=== PATIENT | female | born 1955 | race African-American/Black ===

== ENCOUNTER 2016-10-01 18:20 | Emergency (ER) | payer MEDICAID, OTHER ==
[~2016-10-01] VITALS: Ht 172.7 cm; Wt 69.0 kg
[2016-10-01 18:37] VITALS: BP 154/84
== END 2016-10-01 21:00 | disposition left against medical advice (07) ==
LOC: ER 18:20
DX: I10 Essential (primary) hypertension (principal); F17.200 Nicotine dependence, unspecified, uncomplicated; F12.10 Cannabis abuse, uncomplicated; Z98.890 Other specified postprocedural states; Z90.710 Acquired absence of both cervix and uterus

== ENCOUNTER 2019-08-15 03:39 | Emergency (ER) | payer MEDICAID, OTHER ==
[~2019-08-15] VITALS: Ht 165.1 cm; Wt 57.0 kg
[2019-08-15] MEDS ORDERED: PREDNISONE 20MG TABLET PO ONE (04:15)
[2019-08-15 05:37] VITALS: BP 140/70
== END 2019-08-15 05:37 | disposition home or self-care (01) ==
LOC: ER 03:39
DX: J44.1 Chronic obstructive pulmonary disease with (acute) exacerbation (principal); M79.7 Fibromyalgia; I10 Essential (primary) hypertension; N15.9 Renal tubulo-interstitial disease, unspecified; F12.10 Cannabis abuse, uncomplicated; F17.200 Nicotine dependence, unspecified, uncomplicated; Z90.710 Acquired absence of both cervix and uterus; Z98.890 Other specified postprocedural states
CPT/HCPCS: 71045; 99283; J7512

== ENCOUNTER 2019-10-03 00:34 | Inpatient (IN) | payer MEDICAID ==
[~2019-10-03] VITALS: Ht 172.7 cm; Wt 61.9 kg
[2019-10-03] MEDS ORDERED: IPRATROPIUM BROMIDE (0.02%) 0.5MG/2.5ML NEB HHN STA (00:52)
[2019-10-03] MEDS ORDERED: ALBUTEROL (0.083%) 2.5MG/3ML NEB HHN STA (00:52)
[2019-10-03 01:22] LABS: BASOPHILS % 0.8 % (0.0-2.0); EOSINOPHILS % 1.8 % (0.0-5.0); HEMATOCRIT. 40.3 % (36.0-48.0); HEMOGLOBIN. 13.2 g/dL (12.0-16.0); LYMPHOCYTES % 22.5 % (20.0-50.0); MEAN CORPUSCULAR HEMOGLOBIN 30.9 pg (28.0-32.0); MEAN CORPUSCULAR VOLUME 94.4 fL (81.0-99.0); MEAN PLATELET VOLUME 8.9 fl (7.4-10.4); MONOCYTES % 4.8 % (2.0-8.0); NEUTROPHILS % 70.1 % (40.0-76.0); PLATELET 210 x1000/uL (130-400); RED BLOOD CELL COUNT 4.27 mill/uL (4.2-5.4); RED CELL DISTRIBUTION WIDTH 13.7 % (11.6-14.6)
[2019-10-03 01:26] LABS: CHLORIDE 107 mEq/L (98-107)
[2019-10-03 01:33] LABS: INR 1.1; PARTIAL THROMBOPLASTIN TIME 26.2 sec (23.4-31.0); PROTHROMBIN TIME 12.2 sec (9.6-11.0)
[2019-10-03] MEDS ORDERED: FUROSEMIDE 20MG/2ML VIAL IVP ONE (04:30)
[2019-10-03] MEDS: MORPHINE SULFATE 2 MG/ML CPJ (NOT FOR IM USE) IV PRN ×2 (10:32→16:50)
[2019-10-03] MEDS ORDERED: ONDANSETRON HCL 4MG/2ML INJ IV PRN (17:00)
[2019-10-03] MEDS ORDERED: ACETAMINOPHEN 325MG TABLET PO PRN (17:00)
[2019-10-03] MEDS ORDERED: LORAZEPAM 0.5MG TABLET PO PRN (17:00)
[2019-10-03] MEDS ORDERED: CLONIDINE 0.1MG TABLET PO PRN (17:00)
[2019-10-03] MEDS ORDERED: IPRATROPIUM/ALBUTEROL 0.5-3(2.5)MG/3ML NEB HHN PRN (17:00)
[2019-10-03] MEDS ORDERED: NICOTINE 14MG PATCH TD NR (18:30)
[2019-10-03] MEDS: HYDROCODONE/ACETAMINOPHEN 5/325MG TABLET PO PRN (19:01)
[2019-10-03] MEDS: FUROSEMIDE 40MG/4ML VIAL IVP SCH (19:01)
[2019-10-03] MEDS ORDERED: CYCLOBENZAPRINE 10MG TABLET PO PRN (19:45)
[2019-10-03] MEDS: ATORVASTATIN CALCIUM 40MG TABLET PO SCH (21:39)
[2019-10-03 23:45] VITALS: BP 105/72
[2019-10-04] VITALS (8 sets, daily range): BP systolic 105–136; BP diastolic 69–89
[2019-10-04] MEDS ORDERED: WARFARIN SODIUM 5MG TABLET PO SCH ×2 (01:00→21:00)
[2019-10-04] MEDS ORDERED: DOCU-266 MT (01:52)
[2019-10-04] MEDS ORDERED: ASPI-1158 PO (01:52)
[2019-10-04] MEDS ORDERED: TOPUD MT (01:52)
[2019-10-04] MEDS ORDERED: CYCL10TA7 PO (01:52)
[2019-10-04] MEDS ORDERED: WARF1TAB85 PO (01:52)
[2019-10-04] MEDS ORDERED: PARO-41 PO (01:52)
[2019-10-04] MEDS ORDERED: IPRA4AER INH (01:52)
[2019-10-04] MEDS ORDERED: CHOL200077 PO (01:52)
[2019-10-04] MEDS ORDERED: AMIT25TA9 PO (01:52)
[2019-10-04] MEDS ORDERED: WARF3TAB58 MT (01:52)
[2019-10-04] MEDS: MORPHINE SULFATE 2 MG/ML CPJ (NOT FOR IM USE) IV PRN ×3 (02:27→23:00)
[2019-10-04] MEDS: HYDROCODONE/ACETAMINOPHEN 5/325MG TABLET PO PRN ×2 (07:03→15:28)
[2019-10-04 07:25] LABS: BASOPHILS % 0.9 % (0.0-2.0); EOSINOPHILS % 5.4 % (0.0-5.0); HEMOGLOBIN. 12.4 g/dL (12.0-16.0); LYMPHOCYTES % 44.8 % (20.0-50.0); MEAN CORPUSCULAR HEMOGLOBIN 30.4 pg (28.0-32.0); MEAN CORPUSCULAR VOLUME 92.8 fL (81.0-99.0); MEAN PLATELET VOLUME 9.3 fl (7.4-10.4); MONOCYTES % 6.9 % (2.0-8.0); PLATELET 224 x1000/uL (130-400); RED CELL DISTRIBUTION WIDTH 13.4 % (11.6-14.6)
[2019-10-04 07:28] LABS: INR 1.2; PROTHROMBIN TIME 12.5 sec (9.6-11.0)
[2019-10-04 07:46] LABS: CHLORIDE 104 mEq/L (98-107)
[2019-10-04] MEDS: NICOTINE 14MG PATCH TD SCH (09:26)
[2019-10-04] MEDS: FUROSEMIDE 40MG/4ML VIAL IVP SCH (09:26)
[2019-10-04] MEDS ORDERED: CARVEDILOL 3.125 MG TABLET PO NR (12:30)
[2019-10-04] MEDS: ENOXAPARIN 60MG/0.6ML SYR SUBCUT SCH ×2 (13:23→21:19)
[2019-10-04] MEDS: ATORVASTATIN CALCIUM 40MG TABLET PO SCH (21:19)
[2019-10-04] MEDS: CARVEDILOL 3.125 MG TABLET PO SCH (21:20)
[2019-10-05 00:01] VITALS: BP 119/84
[2019-10-05 04:00] VITALS: BP 109/81
[2019-10-05] MEDS: MORPHINE SULFATE 2 MG/ML CPJ (NOT FOR IM USE) IV PRN ×3 (05:15→21:16)
[2019-10-05 07:28] LABS: BASOPHILS % 0.9 % (0.0-2.0); EOSINOPHILS % 6.8 % (0.0-5.0); HEMATOCRIT. 40.9 % (36.0-48.0); HEMOGLOBIN. 13.2 g/dL (12.0-16.0); LYMPHOCYTES % 50.7 % (20.0-50.0); MEAN CORPUSCULAR HEMOGLOBIN 30.2 pg (28.0-32.0); MEAN CORPUSCULAR VOLUME 93.3 fL (81.0-99.0); MEAN PLATELET VOLUME 9.2 fl (7.4-10.4); NEUTROPHILS % 33.6 % (40.0-76.0); PLATELET 217 x1000/uL (130-400); RED BLOOD CELL COUNT 4.38 mill/uL (4.2-5.4); RED CELL DISTRIBUTION WIDTH 13.2 % (11.6-14.6)
[2019-10-05 07:34] LABS: INR 1.3; PROTHROMBIN TIME 13.9 sec (9.6-11.0)
[2019-10-05 07:51] LABS: CHLORIDE 105 mEq/L (98-107)
[2019-10-05 08:00] VITALS: BP 101/69
[2019-10-05 08:04] LABS: HEPATITIS B SURFACE ANTIGEN NEGATIVE
[2019-10-05] MEDS: NICOTINE 14MG PATCH TD SCH (08:23)
[2019-10-05] MEDS: FUROSEMIDE 40MG/4ML VIAL IVP SCH (08:23)
[2019-10-05] MEDS: ENOXAPARIN 60MG/0.6ML SYR SUBCUT SCH ×2 (08:23→21:16)
[2019-10-05] MEDS: CARVEDILOL 3.125 MG TABLET PO SCH ×2 (08:24→17:27)
[2019-10-05 08:33] LABS: HEPATITIS A AB IGM NEGATIVE (NEGATIVE)
[2019-10-05 08:41] LABS: INR 1.2; PROTHROMBIN TIME 13.4 sec (9.6-11.0)
[2019-10-05 12:00] VITALS: BP 101/62
[2019-10-05] MEDS: DOCUSATE SODIUM 100MG CAPSULE PO PRN (13:22)
[2019-10-05 16:00] VITALS: BP 112/76
[2019-10-05] MEDS ORDERED: WARFARIN SODIUM 5MG TABLET PO NR (18:00)
[2019-10-05 20:00] VITALS: BP 108/70
[2019-10-05] MEDS: ATORVASTATIN CALCIUM 40MG TABLET PO SCH (21:15)
[2019-10-06] VITALS (7 sets, daily range): BP systolic 84–133; BP diastolic 54–77
[2019-10-06 01:15] LABS: *AMPHETAMINES SCREEN URINE NEGATIVE (NEGATIVE); *BARBITURATES SCREEN URINE NEGATIVE (NEGATIVE); *BENZODIAZEPINES SCREEN URINE NEGATIVE (NEGATIVE); *COCAINE SCREEN URINE NEGATIVE (NEGATIVE); METHADONE URINE SCREEN NEGATIVE (NEGATIVE)
[2019-10-06 01:16] LABS: CANNABINOID URINE SCREEN NEGATIVE (NEGATIVE); OPIATES URINE SCREEN PRESUMTIVE POSITIVE (NEGATIVE)
[2019-10-06 01:22] LABS: PHENCYCLIDINE URINE SCREEN NEGATIVE (NEGATIVE)
[2019-10-06 04:07] LABS: HIV SCREEN 4G Non Reactive (Non Reactive)
[2019-10-06 08:11] LABS: BASOPHILS % 1.3 % (0.0-2.0); EOSINOPHILS % 6.3 % (0.0-5.0); HEMATOCRIT. 44.6 % (36.0-48.0); HEMOGLOBIN. 14.6 g/dL (12.0-16.0); INR 1.5; LYMPHOCYTES % 45.4 % (20.0-50.0); MEAN CORPUSCULAR HEMOGLOBIN 30.6 pg (28.0-32.0); MEAN CORPUSCULAR VOLUME 93.6 fL (81.0-99.0); MEAN PLATELET VOLUME 8.9 fl (7.4-10.4); MONOCYTES % 10.4 % (2.0-8.0); NEUTROPHILS % 36.6 % (40.0-76.0); PLATELET 231 x1000/uL (130-400); PROTHROMBIN TIME 16.1 sec (9.6-11.0); RED BLOOD CELL COUNT 4.76 mill/uL (4.2-5.4); RED CELL DISTRIBUTION WIDTH 13.3 % (11.6-14.6)
[2019-10-06 08:18] LABS: CHLORIDE 105 mEq/L (98-107)
[2019-10-06] MEDS: HYDROCODONE/ACETAMINOPHEN 5/325MG TABLET PO PRN (08:39)
[2019-10-06] MEDS: ENOXAPARIN 60MG/0.6ML SYR SUBCUT SCH (08:39)
[2019-10-06] MEDS: CARVEDILOL 3.125 MG TABLET PO SCH (08:39)
[2019-10-06] MEDS: DOCUSATE SODIUM 100MG CAPSULE PO PRN (08:39)
[2019-10-06] MEDS: FUROSEMIDE 40MG/4ML VIAL IVP SCH (08:39)
[2019-10-06] MEDS: NICOTINE 14MG PATCH TD SCH (08:40)
[2019-10-06] MEDS ORDERED: WARF-53 MT (12:08)
[2019-10-06] MEDS ORDERED: WARFARIN SODIUM 5MG TABLET PO NR (18:00)
== END 2019-10-06 15:50 | disposition home or self-care (01) | DRG 133 ==
LOC: ER 00:57 → 5WST 05:23 → ENRESERV 22:35 → 5WST 10-04 02:13
PROVIDERS: ADMIT Internal Medicine; ATTEND Internal Medicine
DX: J96.00 Acute respiratory failure, unspecified whether with hypoxia or hypercapnia (principal); I50.23 Acute on chronic systolic (congestive) heart failure; I42.0 Dilated cardiomyopathy; I27.21 Secondary pulmonary arterial hypertension; J44.1 Chronic obstructive pulmonary disease with (acute) exacerbation; J45.901 Unspecified asthma with (acute) exacerbation; I51.3 Intracardiac thrombosis, not elsewhere classified; I11.0 Hypertensive heart disease with heart failure; M41.9 Scoliosis, unspecified; M54.5 Low back pain; E78.5 Hyperlipidemia, unspecified; G89.29 Other chronic pain; F17.200 Nicotine dependence, unspecified, uncomplicated; Z79.01 Long term (current) use of anticoagulants; Z79.82 Long term (current) use of aspirin; Z90.710 Acquired absence of both cervix and uterus; Z79.899 Other long term (current) drug therapy; Z98.891 History of uterine scar from previous surgery; Z86.718 Personal history of other venous thrombosis and embolism
CPT/HCPCS: 36415; 71045; 76700; 80048; 80053; 80305; 83880; 84484; 85025; 85379; 86705; 86709; 86803; 87340; 87389; 93005; 96374; 99285; J1650; J1940; J2270

== ENCOUNTER 2020-01-04 20:26 | Emergency (ER) | payer MEDICAID, OTHER ==
[~2020-01-04] VITALS: Ht 172.7 cm; Wt 67.0 kg
[~2020-01-04 20:26] MED LIST: AMIT25TA9 PO; CHOL200077 PO; CYCL10TA7 PO; DOCU-266 MT; HYDR-4001 MT; IPRA4AER INH; NICO-645 TP; PARO-41 PO; TOPUD MT
[2020-01-04 20:52] VITALS: BP 112/63
== END 2020-01-04 22:03 | disposition left against medical advice (07) ==
LOC: ER 20:26
DX: Z53.21 Procedure and treatment not carried out due to patient leaving prior to being seen by health care provider (principal); J44.9 Chronic obstructive pulmonary disease, unspecified; I10 Essential (primary) hypertension; Z86.711 Personal history of pulmonary embolism
CPT/HCPCS: 93005

== ENCOUNTER 2024-04-23 07:41 | Emergency (ER) | payer BC, MEDICAID ==
[~2024-04-23] VITALS: Ht 172.7 cm; Wt 70.0 kg
[~2024-04-23 07:41] MED LIST changes: +APIX2.5T PO; +ATOR40TA70 PO; +CYCL10TA21 PO; -CYCL10TA7 PO; -DOCU-266 MT; +DOCU-347 MT; +LEVO50TA8 PO; +LORA-249 MT
[2024-04-23 07:46] VITALS: O2SAT 99
[2024-04-23] MEDS ORDERED: ACETAMINOPHEN 325MG TABLET PO ONE (08:30)
[2024-04-23] MEDS: ACETAMINOPHEN 500MG TABLET PO NR (09:26)
[2024-04-23] MEDS: LIDOCAINE HCL 1% 20ML VIAL INFIL ONE (09:26)
[2024-04-23] MEDS: TETANUS, DIPHTHERIA, PERTUSSIS VAC/PF 0.5ML (>10YR OLD) IM ONE (09:27)
[2024-04-23 10:23] VITALS: BP 142/87; PULSE 82; RESP 18; TEMP 36.89184; O2SAT 99
== END 2024-04-23 10:22 | disposition home or self-care (01) ==
LOC: ER 08:00
DX: S61.511A Laceration without foreign body of right wrist, initial encounter (principal); Z79.899 Other long term (current) drug therapy; W25.XXXA Contact with sharp glass, initial encounter; Y93.89 Activity, other specified; Y92.89 Other specified places as the place of occurrence of the external cause; Y99.8 Other external cause status
CPT/HCPCS: 99283; 73110; 90715; 12002; 90471; J3490

== ENCOUNTER 2024-04-27 08:07 | Emergency (ER) | payer BC, MEDICAID ==
[~2024-04-27] VITALS: Ht 172.7 cm; Wt 64.0 kg
[2024-04-27 08:24] VITALS: O2SAT 100
[2024-04-27] MEDS ORDERED: AZIT250T12 MT (08:49)
[2024-04-27 09:42] VITALS: BP 145/70; PULSE 71; RESP 17; TEMP 36.94740; O2SAT 99
== END 2024-04-27 09:43 | disposition home or self-care (01) ==
LOC: ER 08:07
DX: S61.511A Laceration without foreign body of right wrist, initial encounter (principal); J32.8 Other chronic sinusitis; B96.89 Other specified bacterial agents as the cause of diseases classified elsewhere; E78.00 Pure hypercholesterolemia, unspecified; I10 Essential (primary) hypertension; J44.9 Chronic obstructive pulmonary disease, unspecified; Z79.899 Other long term (current) drug therapy; Z95.0 Presence of cardiac pacemaker; X58.XXXA Exposure to other specified factors, initial encounter; Y93.89 Activity, other specified; Y92.89 Other specified places as the place of occurrence of the external cause; Y99.8 Other external cause status
CPT/HCPCS: 99283

== ENCOUNTER 2024-06-04 09:28 | Emergency (ER) | payer BC, MEDICAID ==
[~2024-06-04] VITALS: Ht 172.7 cm; Wt 61.2 kg
[~2024-06-04 09:28] MED LIST changes: +AZIT250T12 MT
[2024-06-04 10:37] VITALS: O2SAT 100
[2024-06-04 11:02] VITALS: BP 148/79; PULSE 87; RESP 16; TEMP 37.11408; O2SAT 100
== END 2024-06-04 11:15 | disposition home or self-care (01) ==
LOC: ER 09:59
DX: S61.511D Laceration without foreign body of right wrist, subsequent encounter (principal); I10 Essential (primary) hypertension; E78.00 Pure hypercholesterolemia, unspecified; Z79.899 Other long term (current) drug therapy; Z90.710 Acquired absence of both cervix and uterus; X58.XXXD Exposure to other specified factors, subsequent encounter
CPT/HCPCS: 99281

== ENCOUNTER 2025-01-13 13:45 | Emergency (ER) | payer BC, MEDICAID, MEDICARE ==
[~2025-01-13] VITALS: Ht 165.1 cm; Wt 65.0 kg
[~2025-01-13 13:45] MED LIST changes: -AMIT25TA9 PO; +AMLO5TAB88 PO; -APIX2.5T PO; +ATOR10TA69 PO; -ATOR40TA70 PO; -AZIT250T12 MT; -CHOL200077 PO; -CYCL10TA21 PO; +DICL100G58 TP; +EVOL140P3 SUBCUT; -HYDR-4001 MT; -IPRA4AER INH; +LEVO25TA7 PO; -LORA-249 MT; +LOSA25TA26 PO; +METO25TA6 PO; -NICO-645 TP; +NICO-681 TP; -PARO-41 PO; +PARO40TA75 PO; -TOPUD MT
[2025-01-13 13:50] VITALS: O2SAT 99
[2025-01-13 14:43] LABS: BASOPHILS % 0.9 % (0.0-2.0); EOSINOPHILS % 5.9 % (0.0-5.0); HEMATOCRIT. 36.4 % (36.0-48.0); HEMOGLOBIN. 11.7 g/dL (12.0-16.0); LYMPHOCYTES % 37.6 % (20.0-50.0); MEAN PLATELET VOLUME 8.8 fl (7.4-10.4); MONOCYTES % 6.9 % (2.0-8.0); NEUTROPHILS % 48.7 % (40.0-76.0); PLATELET 233 x1000/uL (130-400); RED BLOOD CELL COUNT 3.91 mill/uL (4.2-5.4); RED CELL DISTRIBUTION WIDTH 12.8 % (11.6-14.6)
[2025-01-13 14:58] LABS: CREATININE 0.8 mg/dL (0.6-1.0); UREA NITROGEN BLOOD 14 mg/dL (9-23)
[2025-01-13 15:00] LABS: TROPONIN I HIGH SENSITIVITY 13 ng/L (3.0-34)
[2025-01-13 15:03] LABS: T4 FREE 1.03 ng/dL (0.89-1.76)
[2025-01-13 17:04] LABS: TROPONIN I HIGH SENSITIVITY 14 ng/L (3.0-34)
[2025-01-13 18:27] VITALS: BP 116/59; PULSE 80; RESP 20; TEMP 36.8; O2SAT 100
== END 2025-01-13 18:46 | disposition home or self-care (01) ==
LOC: ER 14:10
DX: T67.1XXA Heat syncope, initial encounter (principal); J44.9 Chronic obstructive pulmonary disease, unspecified; F41.9 Anxiety disorder, unspecified; F12.90 Cannabis use, unspecified, uncomplicated; Z79.899 Other long term (current) drug therapy; Z90.710 Acquired absence of both cervix and uterus; X58.XXXA Exposure to other specified factors, initial encounter
CPT/HCPCS: 36415; 71045; 80048; 84439; 84443; 84484; 85025; 93005; 99285